=== PATIENT | male | born 1945 | race Caucasian/White ===

== ENCOUNTER 2018-12-31 06:05 | Day surgery (SDC) | payer OTHER ==
[~2018-12-31] VITALS: Ht 165.1 cm; Wt 80.7 kg
[2018-12-31] MEDS ORDERED: CLINDAMYCIN 600 mg/50mL D5W 50 ML IV ONE (07:55)
[2018-12-31] MEDS ORDERED: POLYMYXIN 500,000/BACIT.10,000 UNITS in NS IRR 1 L IR ONE (08:53)
[2018-12-31] MEDS ORDERED: LR 1,000 ML IV SCH (09:32)
[2018-12-31] MEDS ORDERED: METOCLOPRAMIDE HCL 10 MG/2 ML VIAL IVP PRN (09:45)
[2018-12-31] MEDS ORDERED: MORPHINE 4 MG/ML INJ. SYRINGE IVP PRN ×3 (09:45)
[2018-12-31] MEDS ORDERED: D5/0.45 NS 1,000 ML IV SCH (10:30)
[2018-12-31] MEDS ORDERED: HYDROcodone/ACETAMIN 5-325 MG TAB (NORCO/ VICODIN) PO PRN ×2 (10:30)
[2018-12-31] MEDS ORDERED: HYDROmorphone 1 MG INJ. 1 MG/ML AMPUL IVP PRN (10:30)
[2018-12-31] MEDS ORDERED: BUPIVACAINE /EPINEPHRINE/PF 0.25% 30 ML VIAL INJ ONE (10:40)
[2018-12-31] MEDS ORDERED: SEVOFLURANE 15 MIN GAS INH ONE (10:40)
[2018-12-31] MEDS ORDERED: LR 1,000 ML IV.SOLN IV ONE (10:40)
[2018-12-31] MEDS ORDERED: ROCURONIUM BROMIDE 10 MG/ML (ZEMURON) ONE (10:40)
[2018-12-31] MEDS ORDERED: NEOSTIGMINE METHYLSULFATE 1 MG/ML, 10 ML VIAL ONE (10:40)
[2018-12-31] MEDS ORDERED: PHENYLEPHRINE HCL 10 MG/ML VIAL (NEOSYNEPHRINE) ONE (10:40)
[2018-12-31] MEDS ORDERED: MIDAZOLAM HCL 5 MG/ML VIAL (VERSED) IV ONE (10:40)
[2018-12-31] MEDS ORDERED: fentaNYL CITRATE/PF 100 MCG/2 ML AMP ONE (10:40)
[2018-12-31] MEDS ORDERED: ONDANSETRON HCL 4 MG/2 ML VIAL ONE (10:40)
[2018-12-31] MEDS ORDERED: GLYCOPYRROLATE 0.2 MG/ML VIAL ONE (10:40)
[2018-12-31] MEDS ORDERED: MORPHINE 4 MG/ML INJ. SYRINGE ONE (11:05)
[2018-12-31] MEDS ORDERED: HYDROcodone/ACETAMIN 5-325 MG TAB (NORCO/ VICODIN) ONE (11:55)
[2018-12-31 12:52] VITALS: BP_SYST 115
== END 2018-12-31 16:50 | disposition home or self-care (01) ==
LOC: SMU 06:05 → SDS 06:05
PROVIDERS: ATTEND Colon & Rectal Surgery
DX: K40.00 Bilateral inguinal hernia, with obstruction, without gangrene, not specified as recurrent (principal); D17.6 Benign lipomatous neoplasm of spermatic cord; J45.909 Unspecified asthma, uncomplicated; G62.9 Polyneuropathy, unspecified; M19.90 Unspecified osteoarthritis, unspecified site; G89.29 Other chronic pain; Z88.8 Allergy status to other drugs, medicaments and biological substances; Z79.82 Long term (current) use of aspirin; Z79.899 Other long term (current) drug therapy
CPT/HCPCS: 49507; C1781; J2250; J2270; J2370; J2405; J2710; J3010; J3490 ×3; J7120